=== PATIENT | female | born 1995 ===

== ENCOUNTER → 2023-12-17 11:23 | Outpatient (BNVA) | payer OTHER, SELFPAY | DX: H65.192 Other acute nonsuppurative otitis media, left ear (principal) | CPT/HCPCS: 99212 ==

== ENCOUNTER → 2023-12-17 11:23 | Outpatient (AMB) | payer OTHER, SELFPAY ==
--- NOTE | 2023-12-17 11:54 | MHC.OFFWIV ---
Intake Vital Signs 12/17/23 11:58 Height 5 ft 2 in Weight 122 lb BMI 22.3 BP 98/62 Blood Pressure Location Lt brachial Position Sitting Respiration 13 Pulse 78 Pulse Source Pulse Oximeter Temp 97.8 F Temp Source Oral Pulse Oximetry (%) 98 Oxygen Delivery Method Room Air Intake Visit Reasons: left ear ache Intake Note: patient complaining of left earache x 4days Allergies No Known Allergies Allergy (Verified 12/17/23 12:13) Medication List - Last Reconciled 12/17/23 by JULIANA Ugalde No Known Home Meds Do you need a note to return to daycare/school/sports/work: No HPI HPI Comments History of Present Illness Details 28-year-old female here today with complaints of left ear pain that started 4 days ago. Initially treated with Claritin which did not seem to help. Yesterday used an at home ear wax removal kit. Reports that initially the ear did feel blocked and this felt better after the ear wax removal. However the pain persists. Exam Awake alert oriented, no acute distress Left ear: Negative tug test, no mastoid pain with palpation, no adenopathy, EAC clear, TM intact erythematous with mucoid effusion Right ear: TM intact and clear Plan Treat for otitis media. Return to office education provided This note is constructed using voice recognition software. While every effort has been made to ensure accuracy in crop quantitative geneticist, still errors may have been included Sometimes, these errors may affect the content or meaning of the given sentence . Physical Exam Vital Signs: Last Vital Signs Temp 97.8 F 12/17/23 11:58 Pulse 78 12/17/23 11:58 Resp 13 12/17/23 11:58 BP 98/62 12/17/23 11:58 Pulse Ox 98 12/17/23 11:58 Oxygen Delivery Method Room Air 12/17/23 11:58 BMI result Body Mass Index 22.3 Assessment & Plan Assessment & Plan (1) Otitis media, left: Code(s): H66.92 - Otitis media, unspecified, left ear Qualifiers: Otitis media type: mucoid Chronicity: acute Qualified Code(s): H65.192 - Other acute nonsuppurative otitis media, left ear Plan: . Medications: New amoxicillin-pot clavulanate 875-125 mg 1 tab PO BID 7 days 14 tabs 0RF Coding Level of Care Code Est Pt Level 3 (81085) Diagnoses Acute mucoid otitis media of left ear H65.192 Otitis media type: mucoid Chronicity: acute
[2023-12-17 11:58] VITALS: BP 98/62; PULSE 78; RESP 13; TEMP 36.6; O2SAT 98; BMI 22.3
== END ==
PROVIDERS: Visit Provider Nurse Practitioner Family
DX: H65.192 Other acute nonsuppurative otitis media, left ear (principal)